=== PATIENT | female | born 1990 | race African-American/Black ===

== ENCOUNTER → 2018-04-09 | Outpatient (CLI) | payer SELFPAY ==
[~2018-04-09] MED LIST: AMOXICILLIN 25250 MG PO; BIOTIN1 POW PO; LEVAQUIN 750MG750 M1 PO; MOTRIN 200200 MG/TAB PO; NORCO 325 MG-51 TAB PO; PRILOTC PO; PROAIR HFA0.09 MG/AC IH; RT ADVAIR 228 DISKUS IH; RT ADVAIR 528 DISKUS IH; SYNTHROID0.075 MG/T PO; TYLENOL 8 HR PO; WELLBUTRIN XL150 MG PO
[2018-04-09 11:40] LABS: ALBUMIN 4.1 gm/dL (3.5-5.0); BILIRUBIN,TOTAL 0.3 mg/dL (0.0-1.0); CALCIUM 9.4 mg/dL (8.4-10.2); CHOLESTEROL RISK RATIO 6.5; CREATININE, serum 0.66 mg/dL (0.52-1.25); TOTAL PROTEIN 7.7 gm/dL (6.4-8.2)
[2018-04-09 12:10] LABS: THYROID STIMULATING HORMONE 3.12 uIU/mL (0.465-4.680)
== END ==
LOC: COL.LAB 10:49 → COL.RAD 10:49
DX: M25.551 Pain in right hip (principal); E03.9 Hypothyroidism, unspecified; Z13.9 Encounter for screening, unspecified

== ENCOUNTER 2019-06-05 10:32 | Emergency (ER) | payer BC ==
[~2019-06-05] VITALS: Ht 162.6 cm; Wt 122.7 kg
[2019-06-05 10:42] VITALS: BP 143/84; TEMP 98.3
[2019-06-05] MEDS ORDERED: ZOLOFT 100MG100 MG PO (11:02)
[2019-06-05 11:08] LABS: BASO % 0.3 % (0.0-2.0); EOS # 0.2 (0.0-0.7); EOS % 2.6 % (0-4.0); GRAN # 5.5 (1.4-6.5); HEMATOCRIT 42.2 % (37.0-47.0); HEMOGLOBIN 13.7 g/dl (12.5-16.0); LYMPH # 3.2 (1.2-3.4); LYMPH % 33.8 % (20.0-51.0); MEAN CELL VOLUME 81 fl (80.0-100.0); MEAN CORPUSCULAR HEMOGLOBIN 26 pg (27.0-31.0); MEAN CORPUSCULAR HGB CONC 33 g/dl (33.0-37.0); MEAN PLATELET VOLUME 9.9 fl (7.4-10.4); MONO # 0.4 (0.1-0.6); PLATELET COUNT 380 K/mm3 (130-400); RED BLOOD COUNT 5.24 M/mm3 (4.10-5.30); REDCELL DISTRIBUTION WIDTH-CV 14.2 % (11.5-14.5)
[2019-06-05 11:13] LABS: INR 0.9 (0.8-3.0); PROTHROMBIN TIME 10.8 SECONDS (9.7-12.8)
[2019-06-05 11:16] LABS: PARTIAL THROMBOPLASTIN TIME 36.3 SECONDS (26.0-37.0)
[2019-06-05 11:25] LABS: ALANINE AMINOTRANSFERASE 10 U/L (9-52); ALBUMIN 4.5 gm/dL (3.5-5.0); ALKALINE PHOSPHATASE 78 U/L (50-136); ANION GAP 10 mmol/L (7-16); AST,SGOT 24 U/L (15-37); BILIRUBIN,TOTAL 0.2 mg/dL (0.0-1.0); BLOOD UREA NITROGEN 10 mg/dL (7-17); CARBON DIOXIDE 26 mmol/L (22-30); CHLORIDE 104 mmol/L (98-107); CREATININE, serum 0.66 (0.52-1.25); GLUCOSE 107 mg/dL (74-106); LIPASE 80 U/L (23-300); POTASSIUM 4.1 mmol/L (3.4-5.0); SODIUM 140 mmol/L (137-145); TOTAL PROTEIN 8.8 gm/dL (6.4-8.2)
[2019-06-05 11:26] LABS: ACETAMINOPHEN < 10 ug/mL (10-30); SALICYLATE < 1.0 mg/dL
[2019-06-05 11:43] LABS: COLLECTION METHOD CLEAN CATCH
[2019-06-05 11:51] LABS: PH 7 (5-8); SQUAMOUS EPITHELIAL 0-2 /hpf; URINE APPEARANCE Clear; URINE BILIRUBIN Negative (NEGATIVE); URINE BLOOD Negative (NEGATIVE); URINE COLOR Colorless; URINE GLUCOSE Negative (NEGATIVE); URINE KETONE Negative (NEGATIVE); URINE LEUKOCYTE ESTERASE Negative (NEGATIVE); URINE NITRATE Negative (NEGATIVE); URINE PROTEIN(semi-quant) Negative (NEGATIVE); URINE RBC None Seen /hpf; URINE UROBILINOGEN Negative (NEGATIVE)
[2019-06-05 11:55] LABS: URINE BACTERIA None Seen /hpf
[2019-06-05 12:04] LABS: TRICYCLIC ANTIDEPRESS URINE NEGATIVE
[2019-06-05 12:30] VITALS: PULSE 71
== END 2019-06-05 12:30 | disposition home or self-care (01) ==
LOC: COL.ER 10:32
PROVIDERS: Emergency Medicine
DX: T39.311A Poisoning by propionic acid derivatives, accidental (unintentional), initial encounter (principal); F17.210 Nicotine dependence, cigarettes, uncomplicated; F41.9 Anxiety disorder, unspecified; E03.9 Hypothyroidism, unspecified
CPT/HCPCS: C9113; J2405; J7030